=== PATIENT | female | born 1970 | race Caucasian/White ===

== ENCOUNTER → 2017-01-06 | Outpatient (CLI) | payer SELFPAY ==
--- NOTE | 2017-01-08 08:40 | MM ---
Reason for exam: clinical finding. Last mammogram was performed 3 years and 7 months ago. History: Family history of breast cancer in paternal aunt and breast cancer in paternal aunt at age 60. Benign US right guided VAD of the right breast, July 27, 2010. Benign US right core biopsy of the right breast, February 13, 2007. Physical Findings: Nurse Summary: A 1.5cm nodule in the right breast at 10 o'clock, and a 2cm nodule in the right breast at 1 o'clock. A 2cm nodule in the left breast at 1 o'clock, and a 2cm nodule in the left breast at 5 o'clock (nurse dw). MG 3D Diag Mammo W/Cad BRITTON Bilateral CC and MLO view(s) were taken. Prior study comparison: June 22, 2013, CAD bilateral diagnostic mammogram. November 07, 2011, CAD bilateral diagnostic mammogram. The breast tissue is extremely dense which could obscure a lesion on mammography. Finding: There are round and oval masses in both breasts. Previous mammotome biopsy in the right breast x 2. These results were verbally communicated with the patient and result sheet given to the patient on 01/06/17. ASSESSMENT: Incomplete: need additional imaging evaluation, BI-RAD 0 RECOMMENDATION: Ultrasound of both breasts.
--- NOTE | 2017-01-08 08:49 | USB ---
Reason for exam: clinical finding. History: Family history of breast cancer in paternal aunt and breast cancer in paternal aunt at age 60. Benign US right guided VAD of the right breast, July 27, 2010. Benign US right core biopsy of the right breast, February 13, 2007. US Breast BILAT Right breast ultrasound includes all four quadrants, the retroareolar region and axilla. Finding demonstrate a 18 x 13 x 20 mm oval, cystic at palpable lesion at 1 o'clock and a 6 x 4 x 5mm oval, mixed, hypoechoic lesion at 6 o'clock. Left breast ultrasound includes all four quadrants, the retroareolar region and axilla. Finding demonstrate a 9 x 5 x 11mm oval, mixed lesion at 1 o'clock, a 28 x 16 x 24mm oval, cystic at palpable lesion at 2 o'clock, a 20 x 14 x 21mm oval, mixed at palpable lesion at 4 o'clock, and a 5 x 4 x 5mm oval, solid, hypoechoic lesion post nipple. These results were verbally communicated with the patient and result sheet given to the patient on 01/06/17. ASSESSMENT: Probably benign, BI-RAD 3 RECOMMENDATION: Ultrasound of the left breast in 6 months.
== END | disposition home or self-care (01) ==
LOC: RADMAMWWP 14:40
PROVIDERS: ATTEND Obstetrics & Gynecology
DX: N63 Unspecified lump in breast (principal)
CPT/HCPCS: 76641; G0204; G0279

== ENCOUNTER 2017-01-10 10:15 | Day surgery (SDC) | payer BC ==
[2017-01-09 11:26] VITALS: BMI 23.6
[~2017-01-10 10:15] MED LIST: LACTATED RINGERS 1,000 ML IV SCH; LIDOCAINE 1% 20 ML VIAL (10MG/ML) FOR IV START INTRADERMA PRN; ONDANSETRON 4 MG/2 ML VIAL IVP PRN
[2017-01-10 11:58] VITALS: RESP 16; TEMP 98
[2017-01-10] MEDS ORDERED: PROPOFOL 10 MG/ML 20 ML VIAL IV ONE (12:15)
--- NOTE | 2017-01-10 12:35 | P.PCN ---
Date of Procedure: 01/10/17 Preoperative Diagnosis: Postoperative Diagnosis: Procedure(s) Performed: BRIEF HISTORY: Patient is a 46-year-old pleasant white female, scheduled for an elective colonoscopy as a part of screening for colorectal neoplasia. She has strong family history of colon cancer in her mother was diagnosed at age 53. PROCEDURE PERFORMED: Colonoscopy. PREOPERATIVE DIAGNOSIS: Screening for colon cancer/family history of colon cancer. IV sedation per Anesthesia. PROCEDURE: After informed consent was obtained, the patient, was brought into the endoscopy unit. IV sedation was administered by Anesthesia under continuous monitoring. Digital rectal examination was normal. Initially the Olympus CF- 160 flexible video colonoscope was then inserted in the rectum, gradually advanced into the cecum without any difficulty. Careful examination was performed as the scope was gradually being withdrawn. Ileocecal valve and the appendiceal orifice were visualized and appeared normal. Prep was excellent. Mucosa of the cecum, ascending colon, transverse colon, descending colon, sigmoid colon, and rectum appeared normal. Retroflexion was performed in the rectum and no lesions were seen. The patient tolerated the procedure well. IMPRESSION: Normal-appearing colon from rectum to cecum with no evidence of colorectal neoplasia. RECOMMENDATIONS: Findings of this examination were discussed with the patient as well as her family. She was advised to have a repeat screening colonoscopy in 5 years because of the strong family history of colon cancer. Implants: Indications for Procedure: Operative Findings: Description of Procedure:
[2017-01-10 13:17] VITALS: BP 115/68; PULSE 52
== END 2017-01-10 14:11 | disposition home or self-care (01) ==
LOC: ORWHC2ENDO 10:15
PROVIDERS: ATTEND Internal Medicine Gastroenterology
DX: Z12.11 Encounter for screening for malignant neoplasm of colon (principal); Z80.0 Family history of malignant neoplasm of digestive organs
CPT/HCPCS: 81025; J2704; G0105; 45378